=== PATIENT | female | born 1980 | race Caucasian/White ===

== ENCOUNTER 2016-12-25 19:42 | Observation (INO) | payer SELFPAY ==
[~2016-12-25] VITALS: Ht 172.7 cm; Wt 52.4 kg
[~2016-12-25 19:42] MED LIST: ACET325T38 PO
--- OUTSIDE RECORDS SUMMARY | 2016-12-25 19:49 | XMS REPORT | Continuity of Care Document ---
Demographics Preferred Language Unknown Marital Status Unknown Episcopal Affiliation Unknown Race Unknown Ethnic Group Unknown Author Author Stephenie Casiano Address Unknown Phone Unavailable Care Team Providers Care Junior Sales Assistant Name Role Phone [employer] Unavailable Unavailable Problems Medications Allergies, Adverse Reactions, Alerts Immunizations Results Order Name Results Value Reference Range Date Interpretation Comments Source Comphnsv U Comp Ur Drug Scr ID1 DSCannabinoids 2014 [facility] [place] Vital Signs Encounters Procedures Plan of Care Social History Assessment and Plan Family History Value Date Source Advance Directives Order Name Results Value Date Source
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
--- NOTE | 2016-12-25 20:27 | NUR ---
[facility] HERE AND WITH PATIENT TO HER SOME QUESTIONS.
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
[2016-12-25 20:38] LABS: BASOPHILS % (AUTO) 0 % (0-2); EOSINOPHILS % (AUTO) 0 % (0-4); LYMPHOCYTES # (AUTO) 1.3 X10^3; MEAN CORPUSCULAR HEMOGLOBIN 29.8 PG (26.0-34.0); MEAN CORPUSCULAR VOLUME 88 FL (80-100); MEAN PLATELET VOLUME 9.9 FL (6.0-9.5); MONOCYTES # (AUTO) 0.6 X10^3; MONOCYTES % (AUTO) 7 % (3-11); NEUTROPHILS % (AUTO) 76 % (51-67); PLATELET COUNT 307 10^3uL (150-450); WHITE BLOOD COUNT 7.98 10^3uL (4.0-11.0)
[2016-12-25 20:42] LABS: ALBUMIN 3.8 g/dL (3.4-5.0); ALKALINE PHOSPHATASE 76 U/L (38-126); ANION GAP 16.6 MEQ/L (3-15); BUN/CREATININE RATIO 17 (10-20); CALCULATED IONIZED CALCIUM 4.2 mg/dL (3.8-4.6); TOTAL PROTEIN 6.7 g/dL (6.4-8.5)
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
--- NOTE | 2016-12-25 20:49 | NUR ---
Patient resting now with eyes closed.
--- NOTE | 2016-12-25 21:07 | NUR ---
GENE FROM [facility] CALLED AND THEY WILL HAVE SOMEONE OUT HERE IN APPROX 45 MIN TO BE WITH PT AND HELP HER.
--- NOTE | 2016-12-25 21:56 | NUR ---
[facility] here in room with patient.
--- NOTE | 2016-12-25 22:07 | NUR ---
Jayde Fairchild RN taking over patient care. Report given.
--- NOTE | 2016-12-25 22:33 | NUR ---
JEANINE PERSONAL IN ROOM
[2016-12-25] MEDS ORDERED: LORazepam 1 MG (ATIVAN) TABLET PO ONE (23:05)
[2016-12-25] MEDS ORDERED: SODIUM CHLORIDE FLUSH 10 ML SYR IV PRN (23:40)
[2016-12-25] MEDS ORDERED: SODIUM CHLORIDE FLUSH 3 ML SYR IV PRN (23:40)
[2016-12-25] MEDS ORDERED: LORazepam 2 MG/ML (ATIVAN) 1 ML VIAL IV ONE (23:40)
--- NOTE | 2016-12-26 00:49 | NUR ---
pt sleeping at this time
--- NOTE | 2016-12-26 00:55 | NUR ---
per dr lopez infuse rest of the 1000 ml bag of ns at 250 ml/hr. Went in room to hook IV back up to pt she did awaken easily and not as anxious. asked her if she needed to use bathroom but she said no and went back to sleep. reported to dr lopez
--- NOTE | 2016-12-26 01:27 | NUR ---
TT TO HOSPITALIST RE ADMIT PT
--- NOTE | 2016-12-26 01:31 | NUR ---
HOSPITALIST EMBLEM CUTTER RETURNED CALL AND IS CONSULTING WITH DR PEREZ
[2016-12-26] MEDS ORDERED: HYDROmorphone 1 MG/ML (DILAUDID) SYRINGE IV PRN (01:35)
[2016-12-26] MEDS ORDERED: ONDANSETRON 2 MG/ML (Z0FRAN) 2 ML VIAL IV PRN (01:35)
--- NOTE | 2016-12-26 01:48 | NUR ---
PT TO BE ADMITTED NOTIFIED GREENSKEEPER
[2016-12-26 02:00] VITALS: BP 105/58
--- NOTE | 2016-12-26 02:28 | NUR ---
Admitted to room. Patient very lethargic. Notified Dr Rossi. He will call in 5 minutes. Patient does talk with nurse short sentences. Rests well at this time. No anxiety.
[2016-12-26 02:30] VITALS: BP 95/45
[2016-12-26 02:31] VITALS: BP 95/45
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
--- NOTE | 2016-12-26 04:00 | NUR ---
Patient remains lethargic, due to sedation. Arouses to verbal stimuli. IV infusing at 125 cc an hour. Call light within reach.
--- NOTE | 2016-12-26 05:48 | Diagnostic Imaging Report ---
CLINICAL INDICATION: Patient with seizure. Exam: Axial CT scan of the brain without IV contrast. Sagittal and coronal reformatted images are created. COMPARISON: None. FINDINGS: Streak artifact obscures portions of the brainstem and posterior fossa. There is no evidence of acute cerebral infarct, intracranial hemorrhage, or gross mass effect. There is normal chaves-white matter distinction. The brain parenchymal volume appears appropriate for patient's age. There is no significant midline shift or herniation. There is no evidence of hydrocephalus. The basal cisterns are unremarkable. The skull, extracranial soft tissue, and orbits are unremarkable. The paranasal sinuses are unremarkable. IMPRESSION: Unremarkable CT scan of the brain. I agree with [facility] report. Dictated by: Dictated on workstation # [id number]
[2016-12-26 05:49] LABS: BASOPHILS % (AUTO) 1 % (0-2); EOSINOPHILS # (AUTO) 0.2 10^3uL; EOSINOPHILS % (AUTO) 3 % (0-4); LYMPHOCYTES # (AUTO) 2.4 X10^3; MEAN CORPUSCULAR HEMOGLOBIN 29.8 PG (26.0-34.0); MEAN CORPUSCULAR HGB CONC 33.7 g/dL (31.0-37.0); MEAN CORPUSCULAR VOLUME 88 FL (80-100); MEAN PLATELET VOLUME 10.2 FL (6.0-9.5); MONOCYTES # (AUTO) 0.6 X10^3; MONOCYTES % (AUTO) 11 % (3-11); NEUTROPHILS # (AUTO) 2.7 X10^3; NEUTROPHILS % (AUTO) 45 % (51-67); PLATELET COUNT 303 10^3uL (150-450); WHITE BLOOD COUNT 5.93 10^3uL (4.0-11.0)
[2016-12-26 06:17] VITALS: BP 108/52
--- NOTE | 2016-12-26 06:30 | NUR ---
Patient awake and cooperative. Assisted to bathroom with two staff. Very unsteady when ambulating. Did put gown on, covers herself when gown placed on. No bruises noted on back or posterior legs. IV patent. No complications to site. Remains drowsy, sedated. UA obtained and taken to Lab. Call light within reach.
[2016-12-26 06:39] LABS: ANION GAP 12.3 MEQ/L (3-15); CALCULATED IONIZED CALCIUM 4.2 mg/dL (3.8-4.6); TOTAL PROTEIN 5.6 g/dL (6.4-8.5)
[2016-12-26 06:45] LABS: AMPHETAMINE SCREEN, URINE Positive (Negative); CANNABINOID SCREEN, URINE Positive (Negative); METHAMPHETAMINE SCREEN URINE S POSITIVE (NEGATIVE); OPIATE SCREEN URINE Negative (Negative); PROPOXYPHENE STAT NEGATIVE (NEGATIVE)
[2016-12-26 07:51] VITALS: BP 90/41
--- NOTE | 2016-12-26 09:14 | NUR ---
NUTRITION ASSESSMENT Level 1 Patient: Yuliana Plummer Age/Sex: 36/F Date Screened: 12-26-16 Weight: 115.2#/52.4 kg Height: 68 inches Primary Diagnosis: altered neurological status Diet Order: NPO Relevant labs: glucose 79, UDS (+) amphetamines, methamphetamines, benzodiazepines and cannabinoids, serum alcohol <10.0 Food allergies: N Nutrition Assessment Criteria Age over 80: N Body Mass Index (BMI) under 19: 6 points Admission Screening Indicates Risk? 6 points Moderate/High Risk Diagnosis: N TPN or PPN: N NPO or clear liquid diet: Yes Serum Glucose <70 or >180: N Hgb A1c >6.7: N/A Total: 12 points Risk Screen: __ Patient at low nutritional risk based on available data; reevaluate in 5-7 days __ Patient at moderate nutritional risk based on available data; reevaluate in 3-5 days _X_ Patient at high nutritional risk; complete Nutrition Assessment within 48 hours of admission.
--- NOTE | 2016-12-26 09:36 | NUR ---
Pt wakes to tactile stimuli- Santos Maguire has seen patient. She continues to request a safe place to go after dismissal. Does not have family in town. Pt up to chair Santos Maguire gives VORB to advance diet to regular- in chair for bfst meal. Addendum: 12/26/16 at 0940 by Aline Dueñas RN Mihaela MEJIA in room at this time
[2016-12-26] MEDS ORDERED: DIPH25TA31 PO (10:40)
--- NOTE | 2016-12-26 10:40 | NUR ---
MED REC COMPLETE--current med list obtained from patient interview conducted by Volodymyr Haas, Pharm. D. Candidate 2017.
[2016-12-26] MEDS ORDERED: ACET-93 PO (10:41)
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
--- NOTE | 2016-12-26 11:10 | Discharge Instructions (E) ---
Discharge Instructions Instructions Please do try to get treatment for the Methamphetamine usage. There are options if you wish to avail yourself of them. Activity Instructions activity as tolerated Doctor's Appointment n/a Discharge Diet: JULIA Hartley DO Dec 26, 2016 11:10
--- NOTE | 2016-12-26 11:30 | NUR ---
Discharge instructions reviewed with patient.
--- NOTE | 2016-12-26 11:34 | NUR ---
Pt dismissed to home via ambulation accompanied by Jessika Puente CNA. Pt states that she prefers to walk home independently. Paperwork and belongings taken with patient.
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
== END 2016-12-26 11:33 | disposition home or self-care (01) ==
LOC: EDUNIT# 19:42 → ED 19:44 → UNDOADMIN 12-26 01:48 → EEVIPCON 12-26 01:48 → INTOOBSV 12-26 01:48 → MED/SURG 12-26 01:48
PROVIDERS: ADMIT Emergency Medicine; ATTEND Emergency Medicine
DX: F15.10 Other stimulant abuse, uncomplicated (principal); F12.10 Cannabis abuse, uncomplicated; F41.9 Anxiety disorder, unspecified; R56.9 Unspecified convulsions; F17.200 Nicotine dependence, unspecified, uncomplicated; T74.11XA Adult physical abuse, confirmed, initial encounter; Y07.499 Other family member, perpetrator of maltreatment and neglect
CPT/HCPCS: 36415; 70450; 80053; 80307; 80320; 84703; 85025; 96361; 96374; 99218; 99284; J2060; J7030; 99285

== ENCOUNTER 2016-12-28 15:27 | Emergency (ER) | payer SELFPAY ==
[~2016-12-28] VITALS: Ht 177.8 cm; Wt 46.0 kg
[2016-12-28 15:30] VITALS: BP 153/102
--- OUTSIDE RECORDS SUMMARY | 2016-12-28 15:30 | XMS REPORT | Continuity of Care Document ---
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 Vital Signs Encounters Procedures Plan of Care Social History Assessment and Plan Family History Value Date Source Advance Directives Order Name Results Value Date Source
--- OUTSIDE RECORDS SUMMARY | 2016-12-28 15:31 | XMS REPORT | Continuity of Care Document ---
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
--- NOTE | 2016-12-28 15:35 | NUR ---
pt here 2 days prior for meth use, states that her "heart hurts"
--- NOTE | 2016-12-28 15:56 | NUR ---
pt states she has suicidal thoughts, states she does not want to be ondrugs anymore, no one listens so she might as well not be here
[2016-12-28 16:16] LABS: BASOPHILS % (AUTO) 0 % (0-2); EOSINOPHILS # (AUTO) 0.2 10^3uL; EOSINOPHILS % (AUTO) 2 % (0-4); LYMPHOCYTES # (AUTO) 2.1 X10^3; MEAN CORPUSCULAR HEMOGLOBIN 29.8 PG (26.0-34.0); MEAN CORPUSCULAR HGB CONC 34.4 g/dL (31.0-37.0); MEAN CORPUSCULAR VOLUME 87 FL (80-100); MEAN PLATELET VOLUME 9.9 FL (6.0-9.5); MONOCYTES # (AUTO) 1.1 X10^3; MONOCYTES % (AUTO) 8 % (3-11); NEUTROPHILS # (AUTO) 9.4 X10^3; NEUTROPHILS % (AUTO) 74 % (51-67); PLATELET COUNT 338 10^3uL (150-450); WHITE BLOOD COUNT 12.83 10^3uL (4.0-11.0)
[2016-12-28] MEDS: NITROGLYCERIN SUBLINGUAL 0.4 MG (NITROQUICK) TABLET SL PRN (16:19)
[2016-12-28] MEDS: ASPIRIN 81 MG CHEW (LOW-DOSE) PO ONE (16:19)
[2016-12-28] MEDS: SODIUM CHLORIDE FLUSH 10 ML SYR IV PRN (16:20)
[2016-12-28] MEDS: SODIUM CHLORIDE FLUSH 3 ML SYR IV PRN (16:21)
[2016-12-28 16:32] LABS: AMPHETAMINE SCREEN, URINE Positive (Negative); CANNABINOID SCREEN, URINE Positive (Negative); METHAMPHETAMINE SCREEN URINE S POSITIVE (NEGATIVE); OPIATE SCREEN URINE Negative (Negative); PROPOXYPHENE STAT NEGATIVE (NEGATIVE)
[2016-12-28] MEDS: LORazepam 1 MG (ATIVAN) TABLET PO ONE (16:37)
--- NOTE | 2016-12-28 16:40 | NUR ---
pt anxious, states cannot see, but follows me with her eyes around room
--- NOTE | 2016-12-28 16:45 | Diagnostic Imaging Report ---
INDICATION: Left-sided chest pain. Portable chest 3:59 PM FINDINGS: Heart size and pulmonary vascularity are normal. Lungs are clear. There are no effusions or pneumothoraces. IMPRESSION: Negative chest. Dictated by: Dictated on workstation # [id number]
[2016-12-28 16:48] LABS: ALBUMIN 4.6 g/dL (3.4-5.0); ALKALINE PHOSPHATASE 88 U/L (38-126); ANION GAP 17.9 MEQ/L (3-15); BUN/CREATININE RATIO 10 (10-20); CALCULATED IONIZED CALCIUM 4.3 mg/dL (3.8-4.6)
== END 2016-12-28 17:45 | disposition home or self-care (01) ==
LOC: ED 15:28
DX: R07.89 Other chest pain (principal); F15.10 Other stimulant abuse, uncomplicated
CPT/HCPCS: 36415; 71010; 80053; 80307; 84484; 85025; 85610; 85730; 93005; 93010; 99284

== ENCOUNTER → 2016-12-28 | Emergency (ER) | payer SELFPAY ==
[~2016-12-28] VITALS: Ht 172.7 cm; Wt 46.0 kg
[~2016-12-28] MED LIST changes: +ACET-93 PO; +DIPH25TA31 PO
--- OUTSIDE RECORDS SUMMARY | 2016-12-28 15:19 | XMS REPORT | Continuity of Care Document ---
Demographics Preferred Language Unknown Marital Status Unknown Pentecostal Affiliation Unknown Race Unknown Ethnic Group Unknown Author Author Stephenie Casiano Address Unknown Phone Unavailable Care Team Providers Care Bottle Gauger Name Role Phone [employer] Unavailable Unavailable Problems Medications Allergies, Adverse Reactions, Alerts Immunizations Results Order Name Results Value Reference Range Date Interpretation Comments Source Comphnsv U Comp Ur Drug Scr ID1 DSCannabinoids 2014 [facility] Vital Signs Encounters Procedures Plan of Care Social History Assessment and Plan Family History Value Date Source Advance Directives Order Name Results Value Date Source
[2016-12-28 15:21] VITALS: BP 147/113
--- OUTSIDE RECORDS SUMMARY | 2016-12-28 15:23 | XMS REPORT | Continuity of Care Document ---
Demographics Preferred Language Unknown Marital Status Unknown Taoist Affiliation Unknown Race Unknown Ethnic Group Unknown Author Author Stephenie Casiano Address Unknown Phone Unavailable Care Team Providers Care Powerhouse Operator Name Role Phone [employer] Unavailable Unavailable Problems Medications Allergies, Adverse Reactions, Alerts Immunizations Results Order Name Results Value Reference Range Date Interpretation Comments Source Comphnsv U Comp Ur Drug Scr ID1 DSCannabinoids 2014 [facility] Vital Signs Encounters Procedures Plan of Care Social History Assessment and Plan Family History Value Date Source Advance Directives Order Name Results Value Date Source
== END | disposition home or self-care (01) ==
LOC: ED 15:19
DX: Z53.20 Procedure and treatment not carried out because of patient's decision for unspecified reasons (principal)